=== PATIENT | female | born 1985 | race Caucasian/White ===

== ENCOUNTER 2017-12-13 22:21 | Emergency (ER) | payer OTHER, MEDICAID, SELFPAY ==
[2017-12-13 22:25] VITALS: BP 107/69; PULSE 64; RESP 18; TEMP 36.3; O2SAT 100; BMI 20.7
[2017-12-13 22:39] VITALS: BP 121/80; PULSE 98; RESP 18; TEMP 36.3; O2SAT 100; BMI 18.8
--- NOTE | 2017-12-13 23:11 | PC.NURSE ---
She stated in a clear voice that she drinks beer every day and today has been very thirsty and urinating frequently.Her gait is steady.her CBG was 86 in triage.
== END 2017-12-13 23:00 | disposition left against medical advice (07) ==
PROVIDERS: Family Provider Nurse Practitioner Family; PCP Nurse Practitioner Family
DX: F41.9 Anxiety disorder, unspecified (principal)
CPT/HCPCS: 99281; 99283

== ENCOUNTER 2018-03-20 10:55 | Emergency (ER) | payer OTHER, MEDICAID, SELFPAY ==
--- NOTE | 2018-03-20 10:57 | ED_ITS ---
HPI - General Adult General Chief complaint: Skin/Abscess/Foreign Body Stated complaint: CLICK IN THROAT,SWOLLEN,CANT SWALLOW Time Seen by Provider: 03/20/18 10:57 Source: patient Mode of arrival: ambulatory Limitations: no limitations History of Present Illness HPI narrative: 32-year-old female who was treated 3 weeks ago for a sinus infection for amoxicillin here for evaluation of swelling to the left side of her neck and also ?clicking ?when she swallows. No fevers. No problems breathing. No problems swallowing. Has not tried anything for prior to arrival. Related Data Home Medications Medication Instructions Recorded Confirmed albuterol sulfate [ProAir HFA] 1 - 2 puff INHALATION PRN PRN 03/20/18 03/20/18 fluticasone 1 spray INTRANASAL DIRECTED 03/20/18 03/20/18 loratadine 1 tab PO DAILY 03/20/18 03/20/18 nicotine (polacrilex) 1 ea PO DIRECTED 03/20/18 03/20/18 trazodone 25 - 50 mg PO BEDTIME PRN 03/20/18 03/20/18 Previous Rx's Medication Instructions Recorded cyclobenzaprine 10 mg PO TID PRN #10 tab 03/20/18 Allergies Allergy/AdvReac Type Severity Reaction Status Date / Time From IMITREX Allergy Mild Uncoded 10/04/17 12:18 Review of Systems Constitutional Denies fever(s) ENT Ears, Nose, Mouth, and Throat: Denies dental pain, Denies dysphagia, Denies vertigo, Denies mouth lesions, Denies mouth pain, Reports neck mass, Reports neck pain, Denies tinnitus, Denies sinus pain, Denies sinus pressure, Reports sore throat, Denies throat swelling and Denies tongue swelling Cardiovascular Denies dyspnea Respiratory Denies dyspnea Gastrointestinal Gastrointestinal: Denies dysphagia Genitourinary Denies dysuria Musculoskeletal Denies myalgias, Denies arthralgias and Reports neck pain Integumentary/Breasts Denies lesions and Denies rash Neurologic Denies vertigo Hematologic/Lymphatic Denies easy bleeding and Denies easy bruising Allergic/Immunologic Denies throat swelling and Denies tongue swelling [facility] Medical History Healthy adult (Acute) Surgical History No pertinent past surgical history (Acute) Social History Smoking Status: Current every day smoker Exam Initial Vital Signs Initial Vital Signs: Vital Signs Temperature 97.8 F 03/20/18 11:13 Pulse Rate 90 03/20/18 11:13 Respiratory Rate 13 03/20/18 11:13 Blood Pressure 107/80 03/20/18 11:13 Pulse Oximetry 100 03/20/18 11:13 Const General: cooperative, healthy appearing, comfortable, well developed, well groomed and No acute distress Orientation: alert, awake and oriented x3 HENMT Head: normal to inspection and normocephalic Ears: TM's normal bilaterally Face and sinus: normal facial exam Mouth: oral mucosae normal and tongue normal Teeth and gingiva: dentition normal Throat: uvula midline Neck Lymphatic: lymphadenopathy (Left anterior cervical) Resp Effort & Inspection: normal respiratory effort Cardio Rate: regular rate Rhythm: regular rhythm GI Inspection: non-distended Palpation: soft, No firm and No tender Skin Lesions: no lesions Rashes: no rashes Neuro General: alert, awake and oriented x3 Extrem General: normal to inspection and capillary refill normal Course Vital Signs - 8 hr 03/20/18 11:13 Temperature 97.8 F Pulse Rate 90 Respiratory Rate 13 Blood Pressure 107/80 Pulse Oximetry 100 Medical Decision Making MDM Narrative Medical decision making narrative: No respiratory distress. Does have 1 left- sided 1 cm freely movable tender lymph node. No overlying skin changes. No respiratory changes. Discussed all this with the patient. No indication for antibiotics. We did discuss the importance of her quitting smoking. She does have a follow-up with ENT in 3 weeks. She was given return precautions. She expressed understanding and agreement with plan. Discharge Plan Departure Patient Disposition: Home Clinical Impression: Lymphadenopathy Discharge Date/Time: 03/20/18 11:52 Interventions: ED Discharge Assessment Last Done: 03/20/18 11:52 Instructions: DI for Lymphadenopathy Activity Restrictions/Additional Instructions: Recommend that you keep your appointment with your ENT doctor that she has scheduled in 3 weeks. If her symptoms worsen, he start having fevers, problems breathing or any other concerning symptoms you can return to the emergency department for a re-evaluation. Prescriptions: New cyclobenzaprine 10 mg tablet 10 mg PO TID PRN (Reason: muscle spasm) Qty: 10 RF: 0 No Action trazodone 50 mg tablet 25 - 50 mg PO BEDTIME PRN (Reason: Insomnia) RF: 0 nicotine (polacrilex) 4 mg gum 1 ea PO DIRECTED RF: 0 albuterol sulfate [ProAir HFA] 90 mcg/actuation HFA aerosol inhaler 1 - 2 puff Inhalation PRN PRN (Reason: Shortness Of Breath) RF: 0 fluticasone 50 mcg/actuation spray,suspension 1 spray Intranasal DIRECTED RF: 0 loratadine 10 mg tablet 1 tab PO DAILY RF: 0
[2018-03-20 11:13] VITALS: BP 107/80; PULSE 90; RESP 13; TEMP 36.6; O2SAT 100
--- NOTE | 2018-03-20 11:32 | PC.NURSE ---
Patient c/o clicking noise with soreness in the throat with swallowing; It doesn't happen if patient turns her head towards the right;
== END 2018-03-20 11:52 | disposition home or self-care (01) ==
PROVIDERS: Emergency Provider Emergency Medicine; Family Provider Nurse Practitioner Family; PCP Nurse Practitioner Family
DX: R59.1 Generalized enlarged lymph nodes (principal)
CPT/HCPCS: 99282

== ENCOUNTER 2019-03-08 16:25 | Emergency (ER) | payer OTHER, MEDICAID, SELFPAY ==
[2019-03-08 17:15] VITALS: BP 136/84; PULSE 93; RESP 18; TEMP 36.7; O2SAT 100; BMI 20.5
--- NOTE | 2019-03-08 17:19 | DI.RAD.S_ITS ---
PROCEDURE: XR KNEE LT 3V INDICATIONS: left knee pain and bump TECHNIQUE: 3 views of the knee were acquired. COMPARISON: None. FINDINGS: Bones: No fractures or dislocations. No suspicious bony lesions. Soft tissues: No joint effusion. No suspicious soft tissue calcifications. IMPRESSION: No left knee fracture or dislocation. No gross soft tissue abnormality is seen. No suspicious bony lesion. Dictated by: Hussein Campuzano M.D. on 03/08/2019 at 17:43 Approved by: Hussein Camupzano M.D. on 03/08/2019 at 17:43
--- NOTE | 2019-03-08 18:41 | ED_ITS ---
HPI - Extremity Problem <KAREY Underwood - Last Filed: 03/08/19 21:56> General Chief complaint: Extremity Problem,Nontraumatic Stated complaint: lump left leg, with numbness above knee Time Seen by Provider: 03/08/19 18:09 Source: patient Mode of arrival: ambulatory Limitations: no limitations History of Present Illness HPI Narrative: 33-year-old female presents emergency department today complaining of left knee discomfort. She states she started having slight pain with ?weird sensations that she described as a slight tapping on her skin to her left knee. She also noted a small cyst-like nodule that developed on the tibial tuberosity of her left knee. Patient states she thinks this might be related. She denies any fevers, trauma to the area, shortness of breath, calf pain, hip pain, nausea, vomiting, diarrhea, or syncope. Related Data Home Medications Medication Instructions Recorded Confirmed albuterol sulfate [ProAir HFA] 1 - 2 puff INHALATION PRN PRN 03/20/18 03/20/18 fluticasone propionate 1 spray INTRANASAL DIRECTED 03/20/18 03/20/18 loratadine 1 tab PO DAILY 03/20/18 03/20/18 nicotine (polacrilex) 1 ea PO DIRECTED 03/20/18 03/20/18 trazodone 25 - 50 mg PO BEDTIME PRN 03/20/18 03/20/18 Previous Rx's Medication Instructions Recorded cyclobenzaprine 10 mg PO TID PRN #10 tab 03/20/18 Allergies Allergy/AdvReac Type Severity Reaction Status Date / Time naltrexone Allergy Verified 03/08/19 17:18 sumatriptan [From Imitrex] Allergy Verified 03/08/19 17:14 Review of Systems <KAREY Underwood - Last Filed: 03/08/19 21:56> Review of Systems Narrative: REVIEW OF SYSTEMS: GENERAL: Denies fever or chills. HENT: No head trauma. EYES: No double vision or vision loss. CARDIOVASCULAR: No chest pain or syncope. RESPIRATORY: No shortness of breath or cough. GASTROINTESTINAL: No nausea, vomiting, diarrhea, or constipation. GENITOURINARY: No flank pain or dysuria. MUSCULOSKELETAL: Complains of left knee sensations in pain, see HPI. INTEGUMENTARY: No rash, lesions, or pruritus. NEURO: No numbness, tingling. Patient denies saddle paresthesias or loss of bowel or bladder control. PSYCH: No behavior or mood changes. PFSH <KAREY Underwood - Last Filed: 03/08/19 21:56> Medical History Healthy adult (Acute) Surgical History No pertinent past surgical history (Acute) Social History Smoking Status: Current every day smoker Social History Smoking Status: Current every day smoker Exam <KAREY Underwood - Last Filed: 03/08/19 21:56> Initial Vital Signs Initial Vital Signs: Vital Signs Temperature 98.1 F 03/08/19 17:15 Pulse Rate 93 H 03/08/19 17:15 Respiratory Rate 18 03/08/19 17:15 Blood Pressure 136/84 03/08/19 17:15 Pulse Oximetry 100 03/08/19 17:15 PHYSICAL EXAMINATION: GENERAL: Well groomed, alert, and cooperative. Answers questions promptly and appropriately. Vital signs noted. HENT: Normocephalic, atraumatic. EYES: Symmetrical, sclera white, no periorbital swelling. RESPIRATORY: Normal respiratory rate, trachea midline, airway patent. No stridor, nasal flaring or accessory muscle use. MUSCULOSKELETAL: There is a slight 2cm cyst noted to tibia region to left knee, slight greenish bruise that appears to be old in nature to left side of kowalski. And tenderness to palpation of knee, thigh, or lower leg. No rashes or surrounding erythema. Normal gait and coordination. Equal tone and mass bilaterally. No spinal tenderness or deformities. EXTREMITIES: CMS intact. No pedal edema. SKIN: Warm, dry, soft, appropriate color for ethnicity. No lesions, rashes, or wounds. NEURO: Patient reports equal light touch sensation to lower extremities, 2+ pedal pulses that are equal bilaterally. Alert and Oriented X 3. No sensory deficits. PSYCH: Appropriate affect and mood. <Winston Gann DO - Last Filed: 03/08/19 23:21> Initial Vital Signs Initial Vital Signs: Vital Signs Temperature 98.1 F 03/08/19 17:15 Pulse Rate 93 H 03/08/19 17:15 Respiratory Rate 18 03/08/19 17:15 Blood Pressure 136/84 03/08/19 17:15 Pulse Oximetry 100 03/08/19 17:15 Course <KAREY Underwood - Last Filed: 03/08/19 21:56> Course Course Narrative: Patient was offered Toradol for her discomfort, she denied. We had a discussion about following up with her primary care provider for further evaluation of the cyst. I spent over 10 minutes educating patient about the reasons to return emergency department such as increased redness around the area, the development of rashes, further concerning symptoms. Orders Ordered: ED Orders 03/08/19 17:19 XR knee LT 3V Stat Discontinued Medications Ketorolac Tromethamine (Toradol) 30 mg IM NOW ONE Stop: 03/08/19 18:34 Last Admin: 03/08/19 18:53 Dose: Not Given Documented by: IVONNE Vital Signs Vital signs: Vital Signs - 8 hr 03/08/19 17:15 03/08/19 18:49 Temperature 98.1 F 98.2 F Pulse Rate 93 H 90 Respiratory Rate 18 18 Blood Pressure 136/84 125/80 Pulse Oximetry 100 100 <Winston Gann DO - Last Filed: 03/08/19 23:21> Orders Ordered: ED Orders 03/08/19 17:19 XR knee LT 3V Stat Discontinued Medications Ketorolac Tromethamine (Toradol) 30 mg IM NOW ONE Stop: 03/08/19 18:34 Last Admin: 03/08/19 18:53 Dose: Not Given Documented by: IVONNE Vital Signs Vital signs: Vital Signs - 8 hr 03/08/19 17:15 03/08/19 18:49 Temperature 98.1 F 98.2 F Pulse Rate 93 H 90 Respiratory Rate 18 18 Blood Pressure 136/84 125/80 Pulse Oximetry 100 100 MDM - Extremity (Nontraumatic) <KAREY Underwood - Last Filed: 03/08/19 21:56> Medical Records Attestation: I reviewed the patient's medical records. Lab Data Attestation: I reviewed the patient's lab results. Imaging Data L Knee XR: Radiologist's impression: [address] [address] XRay Report Signed Patient: Leti Aguirre NMR#: [id number] : 1985Acct:[id number] Age/Sex: 33 / FDate of Service: 03/08/19 Loc: ED Accession Number: [id number] Procedure: XR knee LT 3V Ordering Provider: Laurita Forbes D.O. PROCEDURE: XR KNEE LT 3V INDICATIONS: left knee pain and bump TECHNIQUE: 3 views of the knee were acquired. COMPARISON: None. FINDINGS: Bones: No fractures or dislocations. No suspicious bony lesions. Soft tissues: No joint effusion. No suspicious soft tissue calcifications. IMPRESSION: No left knee fracture or dislocation. No gross soft tissue abnormality is seen. No suspicious bony lesion. Dictated by: Hussein Campuzano M.D. on 03/08/2019 at 17:43 Approved by: Hussein Campuzano M.D. on 03/08/2019 at 17:43 [facility] Narrative Medical decision making narrative: Differential includes sebaceous cyst (this may be causing the sensations that she has been feeling), fracture (less likely due to negative x-ray), pinched nerve (less likely due to lack of shooting pain or burning pain). Less concern for infection or cauda equina due to lack of systemic symptoms such as fever, lack of saddle paresthesias. Patient was encouraged to follow up with her primary care provider for further evaluation. Her condition was noted to be not emergent at this time. Discharge Plan Departure Patient Disposition: Home Clinical Impression: Acute knee pain Qualifiers: Laterality: left Qualified Code(s): M25.562 - Pain in left knee Discharge Date/Time: 03/08/19 18:49 Instructions: DI for Knee Pain Activity Restrictions/Additional Instructions: Thank you for entrusting me with your care today. As discussed, it is possible that the small cyst under knee may be causing her symptoms. Your x-rays were negative for any fractures. Please follow up with your primary care provider in the next week or so for re-evaluation. Return to the emergency department if he develops chest pain, shortness of breath, syncope, seizures, or other concerning symptoms. Prescriptions: No Action trazodone 50 mg tablet 25 - 50 mg PO BEDTIME PRN (Reason: Insomnia) RF: 0 nicotine (polacrilex) 4 mg gum 1 ea PO DIRECTED RF: 0 albuterol sulfate [ProAir HFA] 90 mcg/actuation HFA aerosol inhaler 1 - 2 puff Inhalation PRN PRN (Reason: Shortness Of Breath) RF: 0 fluticasone propionate 50 mcg/actuation spray,suspension 1 spray Intranasal DIRECTED RF: 0 loratadine 10 mg tablet 1 tab PO DAILY RF: 0 cyclobenzaprine 10 mg tablet 10 mg PO TID PRN (Reason: muscle spasm) Qty: 10 RF: 0 Referrals: Yesica Galicia ARNP [Primary Care Provider] - <Winston Gann DO - Last Filed: 03/08/19 23:21> Sign Out Provider Sign Out Attestation: I was available for consultation during this odell ent's emergency department encounter
[2019-03-08 18:49] VITALS: BP 125/80; PULSE 90; RESP 18; TEMP 36.8; O2SAT 100
== END 2019-03-08 18:49 | disposition home or self-care (01) ==
PROVIDERS: Emergency Provider Nurse Practitioner; Family Provider Nurse Practitioner Family; PCP Nurse Practitioner Family
DX: M25.562 Pain in left knee (principal)
CPT/HCPCS: 73562; 99282; 99283

== ENCOUNTER 2019-04-18 19:32 | Emergency (ER) | payer OTHER, MEDICAID, SELFPAY ==
[2019-04-18 19:36] VITALS: BP 135/83; PULSE 99; RESP 14; TEMP 36.8; O2SAT 97; BMI 20.5
--- NOTE | 2019-04-18 20:52 | ED_ITS ---
HPI - Headache <Lorena Oleary PA-C - Last Filed: 04/18/19 21:46> General Chief Complaint: Headache Stated Complaint: states swollen lymph,headache Time Seen by Provider: 04/18/19 19:43 Source: patient Mode of arrival: Ambulatory Limitations: no limitations History of Present Illness HPI Narrative: This 34-year-old female comes to ED with complaints of recurrent headache, ear pain and hearing changes with intermittent hyper acuity and blunted hearing, also intermittent sore throat and lymphadenopathy, which she has had intermittently for 2 years. She states she was seen in the other local ED a couple of weeks ago with even worse headache, and butalbital helped markedly, at least temporarily. She states she has seen ENT in the past and had some type of MRI of her neck or throat area. She has not been able to be referred locally secondary to her primary care clinic closing suddenly and has not been able to get any referrals. She did have a neurology referral set up in a couple of months in [place] as along with the symptoms she has noted intermittent twitching in her eyes. She states a couple of years ago ENT did do a trigeminal nerve block which helped significantly, but then pain seemed to come back again. She did see a dentist at their recommendation and did not find any related problem. She states she also had some bleeding from her left ear about 10 days ago which has resolved. She has a history of migraines and states headache has some features of that, but also more of a squeezing pain. She does not have vomiting or vision change. She denies any fever. She denies any acute changes this evening, but has persistent symptoms and needs help getting care locally. She notes that she was also given dexamethasone she believes at her other ED visit thinks that did help her swollen gland. She denies any travel or known exposures. She denies any possibility of Related Data Home Medications Medication Instructions Recorded Confirmed albuterol sulfate [ProAir HFA] 1 - 2 puff INHALATION PRN PRN 03/20/18 03/20/18 fluticasone propionate 1 spray INTRANASAL DIRECTED 03/20/18 03/20/18 loratadine 1 tab PO DAILY 03/20/18 03/20/18 nicotine (polacrilex) 1 ea PO DIRECTED 03/20/18 03/20/18 trazodone 25 - 50 mg PO BEDTIME PRN 03/20/18 03/20/18 Previous Rx's Medication Instructions Recorded cyclobenzaprine 10 mg PO TID PRN #10 tab 03/20/18 hoipaxkbpq-[id number] 1 tab PO Q6-8H PRN #10 tab 04/18/19 Allergies Allergy/AdvReac Type Severity Reaction Status Date / Time naltrexone Allergy Verified 04/18/19 19:36 sumatriptan [From Imitrex] Allergy Verified 04/18/19 19:36 Review of Systems <Lorena Oleary PA-C - Last Filed: 04/18/19 21:46> Review of Systems ROS Unobtainable: All systems reviewed & are unremarkable except as noted in HPI and below Patient History <Lorena Oleary PA-C - Last Filed: 04/18/19 21:46> Medical History (Updated 04/18/19 @ 21:08 by Lorena Oleary PA-C) Healthy adult (Acute) Lymphadenopathy (Chronic) Migraine (Chronic) Neuralgia (Chronic) Surgical History (Updated 04/18/19 @ 20:57 by Lorena Oleary PA-C) No history of previous surgery (Chronic) No pertinent past surgical history (Acute) Social History Smoking Status: Former smoker alcohol intake frequency: 3 or more drinks per day Alcohol type: beer Substance Use Type: does not use Exam <Lorena Oleary PA-C - Last Filed: 04/18/19 21:46> Narrative Exam Narrative: GENERAL APPEARANCE: Patient sitting comfortably, in no distress. HEAD: No sinus TTP. EYES: PERRL, EOMI. EARS: Normal auditory canals, aside from a small scabbed a bleb on the left with normal tissue surrounding. TMS intact with normal light reflexes. ORAL CAVITY: Normal oropharynx. THROAT: Clear. NECK/THYROID: Neck supple, full range of motion, small symmetric tender anterior cervical nodes, no posterior or supraclavicular nodes LUNGS: Clear to auscultation bilaterally, clear to percussion HEART: RRR without murmur, nl S1, S2, no S3 or S4. DERMATOLOGIC: No exanthem Initial Vital Signs Initial Vital Signs: Vital Signs Temperature 98.3 F 04/18/19 19:36 Pulse Rate 99 H 04/18/19 19:36 Respiratory Rate 14 04/18/19 19:36 Blood Pressure 135/83 04/18/19 19:36 Pulse Oximetry 97 04/18/19 19:36 <Vita Juarez DO - Last Filed: 04/19/19 01:04> Initial Vital Signs Initial Vital Signs: Vital Signs Temperature 98.3 F 04/18/19 19:36 Pulse Rate 99 H 04/18/19 19:36 Respiratory Rate 14 04/18/19 19:36 Blood Pressure 135/83 04/18/19 19:36 Pulse Oximetry 97 04/18/19 19:36 Course <Lorena Oleary PA-C - Last Filed: 04/18/19 21:46> Course Additional Information: Patient has had recurrent headache, facial neuralgia, lymphadenopathy but no acutely worsening symptoms this evening. Agree with her that imaging here such as CT and further lab work unlikely to impact care this evening, likely needs further specialist evaluation and MRI, i.e. of IACs. She did have relief previously with Fioricet and was given 1 this evening and a small prescription. She will get her records from previous workup at [facility] and given number for [facility] so she can call to get set up with a local primary care provider to help with referrals. Advised return to ED in the interim if any acutely worsening symptoms Orders Ordered: Discontinued Medications Acetaminophen/Butalbital/Caffeine (Fioricet) 1 each PO NOW ONE Stop: 04/18/19 20:51 Last Admin: 04/18/19 21:17 Dose: 1 each Documented by: BTONER Vital Signs Vital signs: Vital Signs - 8 hr 04/18/19 19:36 04/18/19 21:57 Temperature 98.3 F Pulse Rate 99 H 80 Respiratory Rate 14 16 Blood Pressure 135/83 115/70 Pulse Oximetry 97 100 <Vita Juarez DO - Last Filed: 04/19/19 01:04> Orders Ordered: Discontinued Medications Acetaminophen/Butalbital/Caffeine (Fioricet) 1 each PO NOW ONE Stop: 04/18/19 20:51 Last Admin: 04/18/19 21:17 Dose: 1 each Documented by: BTONER Vital Signs Vital signs: Vital Signs - 8 hr 04/18/19 19:36 04/18/19 21:57 Temperature 98.3 F Pulse Rate 99 H 80 Respiratory Rate 14 16 Blood Pressure 135/83 115/70 Pulse Oximetry 97 100 Discharge Plan Departure Patient Disposition: Home Clinical Impression: Lymphadenopathy, Neuralgic facial pain Headache Qualifiers: Headache type: unspecified Headache chronicity pattern: chronic headache Intractability: not intractable Qualified Code(s): R51 - Headache Discharge Date/Time: 04/18/19 21:25 Instructions: DI for Headache, DI for Neuralgia Activity Restrictions/Additional Instructions: I think that the facial pain that you described is nerve pain. I agree with you that this needs further testing given the way it improved when you had the nerve block done, and also since you have had hearing changes along with this. Your headache may be a combination of tension and migraine type headache, and this could also be related or exacerbated by your facial or ear pain. Your lymph node seems better tonight which may be related to the steroid you had. I do not think you need any emergency testing or hospitalization tonight, but you do need further workup and referrals. We have given you a dose of Fioricet tonight since that was so helpful for the headache previously, and I have given you a prescription for a few to fill if needed while you are waiting to see a new primary care provider. It would also be helpful if you can get copies of your records from [facility]. Please call [facility] ([place], [place]) tomorrow and request copies of all of your medical records, actual discs with your scanned on them, and any lab work that you have had so that your new primary care provider and anyone that they refer you to will have that information. Please call the hospital affiliate marketing coordinator here tomorrow at [phone] and let them know you were seen in the emergency room tonight and we would like you to have follow-up with a new primary care provider, preferably in the next week, for these problems. The closest local neurologist is in [place] as you already know. There is also an excellent ENT group that sees patients in [place] and [place]. Prescriptions: New wwuliqtiim-oascfvb-ksjjqiqq 50-325-40 mg tablet 1 tab PO Q6-8H PRN (Reason: headache/facial pain) Qty: 10 RF: 0 No Action trazodone 50 mg tablet 25 - 50 mg PO BEDTIME PRN (Reason: Insomnia) RF: 0 nicotine (polacrilex) 4 mg gum 1 ea PO DIRECTED RF: 0 albuterol sulfate [ProAir HFA] 90 mcg/actuation HFA aerosol inhaler 1 - 2 puff Inhalation PRN PRN (Reason: Shortness Of Breath) RF: 0 fluticasone propionate 50 mcg/actuation spray,suspension 1 spray Intranasal DIRECTED RF: 0 loratadine 10 mg tablet 1 tab PO DAILY RF: 0 cyclobenzaprine 10 mg tablet 10 mg PO TID PRN (Reason: muscle spasm) Qty: 10 RF: 0
[2019-04-18] MEDS: BUTALB/APAP/CAFFEINE 50/325/40 TABLET 1 EACH PO (21:17)
--- NOTE | 2019-04-18 21:18 | PC.NURSE ---
pt has left side ear pain, jaw pain. pt has known issues with lymph node, and is attempting to follow up with EENT. pt appt at [facility] was cancelled, with offer local pcps to pt.
[2019-04-18 21:57] VITALS: BP 115/70; PULSE 80; RESP 16; O2SAT 100
== END 2019-04-18 21:25 | disposition home or self-care (01) ==
PROVIDERS: Emergency Provider Internal Medicine; Family Provider Nurse Practitioner Family; PCP Nurse Practitioner Family
DX: R59.1 Generalized enlarged lymph nodes (principal); R51 Headache
CPT/HCPCS: 99282; 99283

== ENCOUNTER 2019-12-21 12:47 | Emergency (ER) | payer OTHER, MEDICAID, SELFPAY ==
[2019-12-21 12:56] VITALS: BP 138/92; PULSE 116; RESP 14; TEMP 36.7; O2SAT 99; BMI 19.7
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
[2019-12-21 13:35] VITALS: PULSE 102
[2019-12-21] MEDS: OXYCODONE/ACETAMINOPHEN 5/325 TABLET 1 TAB PO (13:54)
[2019-12-21 14:10] LABS: Add Manual Diff / Slide Review NO; Basophils Absolute Auto 100 /uL (0-100); Basophils Percent Auto 2.3 % (0-2); Eosinophils Absolute Auto 0 /uL (0-450); Eosinophils Percent Auto 0.6 % (2-4); Hematocrit 31.7 % (36-46); Hemoglobin 11.3 g/dL (12.0-16.0); Lymphocytes Absolute Auto 900 /uL (1100-4500); Lymphocytes Percent Auto 22.2 % (25-40); Mean Corpuscular HGB Conc 35.5 % (30-36); Mean Corpuscular Hemoglobin 37.8 PG (26-34); Mean Corpuscular Volume 106.7 fL (80-100); Monocytes Absolute Auto 400 /uL (0-900); Monocytes Percent Auto 11.2 % (3-14); Neutrophils Absolute Auto 2600 /uL (1500-7000); Neutrophils Percent Auto 63.7 % (50-75); Platelet Count 373 X10^3/uL (150-400); Red Blood Cell Count 2.98 X10^6/uL (4.0-5.2)
[2019-12-21 14:21] LABS: Alanine Aminotransferase 53 IU/L (<35); Albumin 4.9 g/dL (3.5-5.0); Albumin Globulin Ratio 1.8 (1.0-2.8); Alkaline Phosphatase 78 U/L (38-126); Aspartate Aminotransferase 147 IU/L (14-36); Bilirubin Total 0.4 mg/dL (0.2-1.3); Calcium 9.1 mg/dL (8.4-10.2); Carbon Dioxide 29 mmol/L (22-32); Chloride 96 mmol/L (98-107); Estimated Glomerular Filt Rate > 60.0 mL/min (>60); Globulin 2.8 g/dL (1.7-4.1); Glucose 101 mg/dL (70-100); HEMOLYSIS < 15 (0-50); Lipase 232 U/L (23-300); Potassium 4.1 mmol/L (3.4-5.1); Sodium 135 mmol/L (137-145); Total Protein 7.7 g/dL (6.3-8.2)
[2019-12-21 14:22] LABS: Creatine Kinase 103 U/L (30-135)
[2019-12-21 14:34] LABS: BUN Creatinine Ratio 5.6 (6-22); Blood Urea Nitrogen < 2 mg/dL (7-17); Troponin I < 0.012 ng/mL (0.01-0.034)
[2019-12-21 14:37] LABS: CKMB % Relative Index 0.5 % (1.5-5.0); Creatine Kinase MB 0.51 ng/mL (<2.37)
[2019-12-21 15:21] LABS: RBC Urine 0-1/HPF (0-5/HPF)
[2019-12-21 15:22] LABS: Bacteria Urine Many (>30); Culture Indicated Urine Specimen Cultured; Squamous Epithelial Cell Urine 0-1 /HPF (0-5/HPF); WBC Urine 1-5/HPF (0-5/HPF)
== END 2019-12-21 15:43 | disposition home or self-care (01) ==
PROVIDERS: Emergency Provider Student in an Organized Health Care Education/Training Program; Family Provider Nurse Practitioner Family; PCP Nurse Practitioner Family
DX: R07.89 Other chest pain (principal); S52.571A Other intraarticular fracture of lower end of right radius, initial encounter for closed fracture; V87.7XXA Person injured in collision between other specified motor vehicles (traffic), initial encounter; N39.0 Urinary tract infection, site not specified
CPT/HCPCS: 36415; 71046; 73130; 80053; 81003; 81015; 81025; 82550; 82553; 83690; 84484; 85025; 86850; 86900; 86901; 87077; 87086; 87186; 93005; 99284

== ENCOUNTER 2020-01-09 17:21 | Observation (INO) | payer OTHER, MEDICAID, SELFPAY ==
[2020-01-09] VITALS (8 sets, daily range): BP systolic 116–139; BP diastolic 69–84; PULSE 111–122; RESP 16–20; TEMP 36.1–36.8; O2SAT 97–100; BMI 19.9
--- NOTE | 2020-01-09 18:27 | ED.NAVMDI ---
HPI - Nausea/Vomiting/Diarrhea General Chief complaint: Nausea/Vomiting/Diarrhea Stated complaint: medication issues Time Seen by Provider: 01/09/20 18:10 Source: patient Mode of arrival: Ambulatory Limitations: no limitations History of Present Illness HPI Narrative: 34F smoker with history of mental health issues and substance abuse presents with epigastric pain and persistent N/V. She has had N/V off and on for some time, but it is notably worse today. She has become tremulous, dizzy, and lightheaded. She drinks regularly and questions whether or not she may be withdrawing a bit from this or possibly medications as she cannot tell if she has been keeping her medications down. She has no fever or chills. She denies diarrhea, abdominal pain, nor urinary complaints such as dysuria, frequency, or urgency. Related Data Home Medications Medication Instructions Recorded Confirmed albuterol sulfate [ProAir HFA] 1 - 2 puff INHALATION PRN PRN 03/20/18 01/09/20 fluticasone propionate 1 spray INTRANASAL DIRECTED 03/20/18 01/09/20 loratadine 1 tab PO DAILY 03/20/18 01/09/20 nicotine (polacrilex) 1 ea PO DIRECTED 03/20/18 01/09/20 trazodone 25 - 50 mg PO BEDTIME PRN 03/20/18 01/09/20 bupropion HCl 150 mg PO BID 01/09/20 01/09/20 calcium carb-mag hydrox-simeth 10 ml PO PRN PRN 01/09/20 01/09/20 [Mylanta Tonight] vzuizhxxi-WBY-QB-acetaminophen 30 ml PO BEDTIME 01/09/20 01/09/20 [Nite Time] duloxetine 20 mg PO DAILY 01/09/20 01/09/20 ferrous sulfate 325 mg PO DAILY 01/09/20 01/09/20 folic acid 0.8 mg PO DAILY 01/09/20 01/09/20 magnesium 250 mg PO DAILY 01/09/20 01/09/20 nortriptyline 50 mg PO BEDTIME 01/09/20 01/09/20 tramadol 50 mg PO DAILY 01/09/20 01/09/20 vit B complex 100 combo no.2 1 tab PO DAILY 01/09/20 01/09/20 [B-100 Complex] Previous Rx's Medication Instructions Recorded cyclobenzaprine 10 mg PO TID PRN #10 tab 03/20/18 ioelifzrnw-rktojoi-xmkzikhu 1 tab PO Q6-8H PRN #10 tab 04/18/19 nitrofurantoin macrocrystal 100 mg PO BID #10 cap 12/21/19 oxycodone-acetaminophen 1 tab PO Q4-6H PRN #18 tab 12/21/19 Allergies Allergy/AdvReac Type Severity Reaction Status Date / Time naltrexone Allergy Verified 01/09/20 18:13 sumatriptan [From Imitrex] Allergy Verified 01/09/20 18:13 Review of Systems Constitutional Constitutional: Denies chills, Denies fatigue, Denies fever(s), Denies frequent falls, Denies lethargy and Denies weakness Eyes Eyes: Denies change in vision, Denies eye discharge, Denies irritation and Denies loss of vision ENT Ears, Nose, Mouth, and Throat: Denies change in voice, Denies dizziness, Denies neck pain, Denies sore throat and Denies throat swelling Cardiovascular Cardiovascular: Denies chest pain, Denies irregular heart rhythm, Denies lightheadedness, Denies palpitations, Denies dyspnea, Denies dyspnea on exertion and Denies orthopnea Respiratory Respiratory: Denies cough, Denies dyspnea, Denies dyspnea on exertion and Denies wheezing Gastrointestinal Gastrointestinal: Reports abdominal pain, Denies change in bowel habits, Denies diarrhea, Reports nausea and Reports vomiting Musculoskeletal Musculoskeletal: Denies neck pain and Denies numbness Integumentary/Breasts Skin/Breast: Denies pruritus, Denies erythema, Denies rash and Denies wounds Neurologic Neurologic: Denies behavioral changes, Denies confusion, Denies dizziness, Denies frequent falls, Denies loss of vision, Denies numbness and Denies weakness Psychiatric Psychiatric: Denies anxiety, Denies behavioral changes, Denies confusion, Denies depression, Denies homicidal ideation and Denies suicidal ideation Endocrine Endocrine: Denies fatigue, Denies flushing and Denies palpitations Hematologic/Lymphatic Hematologic/Lymphatic: Denies easy bruising Allergic/Immunologic Allergic/Immunologic: Denies urticaria, Denies throat swelling and Denies wheezing Patient History Medical History (Updated 01/09/20 @ 21:54 by Alexander Ochoa DO) Healthy adult (Acute) Lymphadenopathy (Chronic) Migraine (Chronic) Neuralgia (Chronic) Surgical History No history of previous surgery (Chronic) No pertinent past surgical history (Acute) Family History (Updated 01/10/20 @ 00:57 by KAREY Reece) Father Alcoholism in family member Social History household members: family Smoking Status: Former smoker alcohol intake: current Smoking Status: Former smoker alcohol intake frequency: 3 or more drinks per day Alcohol type: beer Substance Use Type: marijuana Exam Narrative Exam Narrative: GENERAL: [34] year old patient appears stated age. Thin, anxious, tremulous HEAD: Atraumatic. Normocephalic. EYES: Pupils equal round and reactive. Extraocular motions intact. No scleral icterus. No injection or drainage. ENT: Dry mucous membranes Nose without bleeding, purulent drainage. Throat without erythema, tonsillar hypertrophy or exudate. Airway patent. NECK: Trachea midline. Non tender CARDIOVASCULAR: Tachycardic but regular rhythm without murmurs, gallops, or rubs. RESPIRATORY: Clear to auscultation. Breath sounds equal bilaterally. No wheezes, rales, or rhonchi. GASTROINTESTINAL: Abdomen soft, non-tender, nondistended. EXTREMITIES: No edema or joint tenderness. BACK: Nontender without deformity or crepitance. No flank tenderness. NEURO: AOx3. SKIN: Poor skin turgor No rash or erythema of visible areas Initial Vital Signs Initial Vital Signs: Vital Signs Temperature 97.0 F L 01/09/20 18:10 Pulse Rate 117 H 01/09/20 18:10 Respiratory Rate 20 01/09/20 18:10 Blood Pressure 132/69 01/09/20 18:10 Pulse Oximetry 100 01/09/20 18:10 Course Orders Ordered: Acetaminophen (Tylenol) 650 mg PO Q6HR PRN PRN Reason: Fever/Mild Pain (1-3) Albuterol (Ventolin Hfa (Vent/Covid R/O)) 2 puff INH RTQ4HR [facility] Last Admin: 01/10/20 04:28 Dose: Not Given Documented by: RAMSEY Docusate Sodium (Colace) 100 mg PO BID [facility] Last Admin: 01/10/20 00:57 Dose: Not Given Documented by: RAMSEY Enoxaparin Sodium (Lovenox) 40 mg SUBCUT DAILY [facility] Folic Acid (Folic Acid) 1 mg PO DAILY [facility] Sodium Chloride (Normal Saline 0.9%) 1,000 mls @ 150 mls/hr IV CONT [facility] Last Admin: 01/09/20 22:06 Dose: Not Given Documented by: LUIS ALBERTO Sodium Chloride (Normal Saline 0.9%) 1,000 mls @ 100 mls/hr IV CONT [facility] Magnesium Sulfate 2 gm/ Folic Acid 1 mg/ Thiamine HCl 100 mg / Multivitamins 10 ml/ Sodium Chloride 1,015.2 mls @ 125 mls/hr IV NOW ONE Stop: 01/10/20 07:29 Last Admin: 01/10/20 00:38 Dose: 125 mls/hr Documented by: RAMSEY Ketorolac Tromethamine (Toradol) 15 mg IV Q8H PRN PRN Reason: Pain, Moderate (4-6) Stop: 01/15/20 00:14 Last Admin: 01/10/20 00:38 Dose: 15 mg Documented by: RAMSEY Lorazepam (Ativan) 2 mg PO Q4HR PRN; Protocol PRN Reason: Alcohol Withdrawal Last Admin: 01/10/20 00:59 Dose: 2 mg Documented by: RAMSEY Metoclopramide HCl (Reglan) 5 mg IV Q6HR PRN PRN Reason: Nausea And Vomiting Multivitamins (Tab-A-Joleen) 1 tab PO DAILY [facility] Naloxone HCl (Narcan) 0.2 mg IV Q2MIN PRN PRN Reason: Opiate Reversal Nicotine (Nicoderm) 14 mg TOP DAILY [facility] Ondansetron HCl (Zofran) 4 mg IV Q4HR PRN PRN Reason: Nausea And Vomiting Last Admin: 01/10/20 00:39 Dose: 4 mg Documented by: Admin: 01/09/20 19:49 Dose: 4 mg Documented by: LUIS ALBERTO Ondansetron HCl (Zofran) 4 mg IV Q6HR [facility] Last Admin: 01/10/20 00:40 Dose: 4 mg Documented by: RAMSEY Oxycodone/Acetaminophen (Percocet 5/325) 1 tab PO Q6HR PRN PRN Reason: Pain, Severe (7-10) Thiamine HCl (Vitamin B-1) 100 mg PO DAILY [facility] Stop: 01/13/20 09:01 Discontinued Medications Sodium Chloride (Normal Saline 0.9%) 1,000 mls @ 1,000 mls/hr IV [facility]OLUS ONE Stop: 01/09/20 19:27 Last Infusion: 01/09/20 22:54 Dose: 0 mls/hr Documented by: LUIS ALBERTO Admin: 01/09/20 19:48 Dose: 1,000 mls/hr Documented by: LUIS ALBERTO Lorazepam (Ativan) 2 mg PO Q4HR [facility]; Protocol Ondansetron HCl (Zofran) 4 mg IV Q8HR PRN PRN Reason: Nausea And Vomiting Oxycodone/Acetaminophen (Percocet 5/325) 1 tab PO Q6HR [facility] Last Admin: 01/10/20 04:30 Dose: Not Given Documented by: RAMSEY Pantoprazole Sodium (Protonix) 40 mg IV NOW ONE Stop: 01/09/20 18:29 Last Admin: 01/09/20 19:48 Dose: 40 mg Documented by: LUIS ALBERTO Phenobarbital (Phenobarbital) 130 mg IV NOW ONE Stop: 01/09/20 19:39 Last Admin: 01/09/20 19:49 Dose: 130 mg Documented by: LUIS ALBERTO Vital Signs Vital signs: Vital Signs - 8 hr 01/09/20 18:10 01/09/20 19:59 01/09/20 20:00 Temperature 97.0 F L Pulse Rate 117 H 114 H 114 H Respiratory Rate 20 Blood Pressure 132/69 130/82 124/82 Pulse Oximetry 100 100 100 01/09/20 20:15 01/09/20 20:30 01/09/20 21:00 Temperature Pulse Rate 111 H 119 H 119 H Respiratory Rate Blood Pressure 122/80 118/75 Pulse Oximetry 100 100 100 01/09/20 21:13 Temperature Pulse Rate 117 H Respiratory Rate Blood Pressure 116/84 Pulse Oximetry 100 MDM - Nausea/Vomiting/Diarrhea Lab Data Result diagrams: 01/09/20 19:21 01/09/20 19:21 Labs: Lab Results 01/09/20 01/09/20 01/09/20 Range/Units 19:21 19:21 19:21 WBC 8.4 (4.5-11.0) X10^3/uL RBC 2.86 L (4.0-5.2) X10^6/uL Hgb 10.8 L (12.0-16.0) g/dL Hct 29.9 L (36-46) % MCV 104.8 H (80-100) fL MCH 37.9 H (26-34) PG MCHC 36.1 H (30-36) % RDW 11.7 (11.6-14.8) % Plt Count 311 (150-400) X10^3/uL Neut % (Auto) 82.7 H (50-75) % Lymph % (Auto) 9.0 L (25-40) % [place] % (Auto) 7.1 (3-14) % Eos % (Auto) 0.1 L (2-4) % Baso % (Auto) 1.1 (0-2) % Neut # (Auto) 7000 (7217-3907) /uL Lymph # (Auto) 800 L (4759-0082) /uL [place] # (Auto) 600 (0-900) /uL Eos # (Auto) 0 (0-450) /uL Baso # (Auto) 100 (0-100) /uL Sodium 125 L (137-145) mmol/L Potassium 3.4 (3.4-5.1) mmol/L Chloride 85 L (98-107) mmol/L Carbon Dioxide 25 (22-32) mmol/L BUN 8 (7-17) mg/dL Creatinine 0.29 L (0.52-1.04) mg/dL Estimated GFR > 60.0 (>60) mL/min BUN/Creatinine Ratio 27.6 H (6-22) Glucose 106 H (70-100) mg/dL Calcium 9.4 (8.4-10.2) mg/dL Total Bilirubin 1.0 (0.2-1.3) mg/dL AST 111 H (14-36) IU/L ALT 53 H (<35) IU/L Alkaline Phosphatase 105 (38-126) U/L Total Protein 7.6 (6.3-8.2) g/dL Albumin 4.8 (3.5-5.0) g/dL Globulin 2.8 (1.7-4.1) g/dL Albumin/Globulin Ratio 1.7 (1.0-2.8) Lipase 130 (23-300) U/L Urine RBC (0-5/HPF) Urine WBC (0-5/HPF) Ur Squamous Epith Cells (0-5/HPF) Urine Bacteria (None) Ur Culture Indicated? Salicylates < 1.0 (<20) mg/dL U Opiates 300ng/mL cut (Negative) Ur Oxycodone Screen (Negative) Urine Methadone Screen (Negative) Acetaminophen < 10 L (10-30) ug/mL Ur Barbiturates Screen (Negative) U Tricyclic Antidepress (Negative) Ur Phencyclidine Scrn (Negative) Ur Amphetamines Screen (Negative) U Methamphetamines Scrn (Negative) Ur MDMA Scrn (Ecstasy) (Negative) U Benzodiazepines Scrn (Negative) Urine Cocaine Screen (Negative) U Marijuana (THC) Screen (Negative) Ethyl Alcohol < 10 ( - 10) mg/dL COVID-19 PCR (Negative) 01/09/20 01/09/20 01/09/20 Range/Units 19:28 19:28 21:20 WBC (4.5-11.0) X10^3/uL RBC (4.0-5.2) X10^6/uL Hgb (12.0-16.0) g/dL Hct (36-46) % MCV (80-100) fL MCH (26-34) PG MCHC (30-36) % RDW (11.6-14.8) % Plt Count (150-400) X10^3/uL Neut % (Auto) (50-75) % Lymph % (Auto) (25-40) % [place] % (Auto) (3-14) % Eos % (Auto) (2-4) % Baso % (Auto) (0-2) % Neut # (Auto) (6913-3828) /uL Lymph # (Auto) (1681-7454) /uL [place] # (Auto) (0-900) /uL Eos # (Auto) (0-450) /uL Baso # (Auto) (0-100) /uL Sodium (137-145) mmol/L Potassium (3.4-5.1) mmol/L Chloride (98-107) mmol/L Carbon Dioxide (22-32) mmol/L BUN (7-17) mg/dL Creatinine (0.52-1.04) mg/dL Estimated GFR (>60) mL/min BUN/Creatinine Ratio (6-22) Glucose (70-100) mg/dL Calcium (8.4-10.2) mg/dL Total Bilirubin (0.2-1.3) mg/dL AST (14-36) IU/L ALT (<35) IU/L Alkaline Phosphatase (38-126) U/L Total Protein (6.3-8.2) g/dL Albumin (3.5-5.0) g/dL Globulin (1.7-4.1) g/dL Albumin/Globulin Ratio (1.0-2.8) Lipase (23-300) U/L Urine RBC None seen (0-5/HPF) Urine WBC 1-5/hpf (0-5/HPF) Ur Squamous Epith Cells 0-1 /hpf (0-5/HPF) Urine Bacteria Many (>30) H (None) Ur Culture Indicated? Specimen cultured Salicylates (<20) mg/dL U Opiates 300ng/mL cut Negative (Negative) Ur Oxycodone Screen Negative (Negative) Urine Methadone Screen Negative (Negative) Acetaminophen (10-30) ug/mL Ur Barbiturates Screen Positive H (Negative) U Tricyclic Antidepress Negative (Negative) Ur Phencyclidine Scrn Negative (Negative) Ur Amphetamines Screen Negative (Negative) U Methamphetamines Scrn Negative (Negative) Ur MDMA Scrn (Ecstasy) Negative (Negative) U Benzodiazepines Scrn Negative (Negative) Urine Cocaine Screen Negative (Negative) U Marijuana (THC) Screen Negative (Negative) Ethyl Alcohol ( - 10) mg/dL COVID-19 PCR Negative (Negative) Point of Care Testing Test Results Negative Urine Dip Bedside Urine Glucose Negative Bedside Urine Bilirubin - Negative Bedside Urine Ketone ++ 40 Urine Specific [place] 1.015 Bedside Urine Occult Blood - Negative Bedside Urine pH 7.0 Bedside Urine Protein +/- 15 Bedside Urine Urobilinogen - Negative Bedside Urine Nitrite - Negative Bedside Urine Leukocytes +/- 15 Esterase Discharge Plan Departure Patient Disposition: Admitted as Observation Clinical Impression: Acute hyponatremia Discharge Date/Time: 01/09/20 22:53 Referrals: Yesica Galicia ARNP [Primary Care Provider] - Admit Date/Time: 01/09/20 21:56 Admit Provider: Tamara Villalobos
[2020-01-09 19:41] LABS: RBC Urine None Seen (0-5/HPF)
[2020-01-09 19:41] LABS: Alanine Aminotransferase 53 IU/L (<35); Albumin 4.8 g/dL (3.5-5.0); Albumin Globulin Ratio 1.7 (1.0-2.8); Alkaline Phosphatase 105 U/L (38-126); Aspartate Aminotransferase 111 IU/L (14-36); BUN Creatinine Ratio 27.6 (6-22); Blood Urea Nitrogen 8 mg/dL (7-17); Calcium 9.4 mg/dL (8.4-10.2); Carbon Dioxide 25 mmol/L (22-32); Chloride 85 mmol/L (98-107); Estimated Glomerular Filt Rate > 60.0 mL/min (>60); Globulin 2.8 g/dL (1.7-4.1); Glucose 106 mg/dL (70-100); HEMOLYSIS < 15 (0-50); Lipase 130 U/L (23-300); Potassium 3.4 mmol/L (3.4-5.1); Sodium 125 mmol/L (137-145); Total Protein 7.6 g/dL (6.3-8.2)
[2020-01-09 19:42] LABS: Acetaminophen < 10 ug/mL (10-30); Add Manual Diff / Slide Review NO; Basophils Absolute Auto 100 /uL (0-100); Basophils Percent Auto 1.1 % (0-2); Eosinophils Absolute Auto 0 /uL (0-450); Eosinophils Percent Auto 0.1 % (2-4); Ethanol (ETOH) < 10 mg/dL; Hematocrit 29.9 % (36-46); Hemoglobin 10.8 g/dL (12.0-16.0); Lymphocytes Absolute Auto 800 /uL (1100-4500); Mean Corpuscular HGB Conc 36.1 % (30-36); Mean Corpuscular Hemoglobin 37.9 PG (26-34); Mean Corpuscular Volume 104.8 fL (80-100); Monocytes Absolute Auto 600 /uL (0-900); Monocytes Percent Auto 7.1 % (3-14); Neutrophils Absolute Auto 7000 /uL (1500-7000); Neutrophils Percent Auto 82.7 % (50-75); Platelet Count 311 X10^3/uL (150-400); Red Blood Cell Count 2.86 X10^6/uL (4.0-5.2); Red Cell Distribution Width 11.7 % (11.6-14.8); Salicylate < 1.0 mg/dL (<20); White Blood Cell Count 8.4 X10^3/uL (4.5-11.0)
[2020-01-09 19:44] LABS: UR Morphine/Opiate cutoff 300 Negative (Negative); Ur Creatinine Normal (Normal); Ur Specific Gravity Normal (Normal); Urine Amphetamines Negative (Negative); Urine Barbiturates Positive (Negative); Urine Benzodiazepines Negative (Negative); Urine Cocaine Negative (Negative); Urine MDMA Negative (Negative); Urine Methadone Negative (Negative); Urine Methamphetamines Negative (Negative); Urine Oxycodone Negative (Negative); Urine Phencyclidine Negative (Negative); Urine Tetrahydrocannabinol Negative (Negative); Urine Tricyclic Antidepressant Negative (Negative); Urine pH Normal (Normal)
[2020-01-09 19:48] LABS: Bacteria Urine Many (>30); Culture Indicated Urine Specimen Cultured; Squamous Epithelial Cell Urine 0-1 /HPF (0-5/HPF); WBC Urine 1-5/HPF (0-5/HPF)
[2020-01-09] MEDS: PANTOPRAZOLE 40 MG VIAL IV (19:48)
[2020-01-09] MEDS: SODIUM CHLORIDE 0.9% 1,000 ML 1000 ML IV (19:48)
[2020-01-09] MEDS: PHENobarbital 65 MG/ML VIAL 130 MG IV (19:49)
[2020-01-09] MEDS: ONDANSETRON 4 MG/2 ML INJ IV (19:49)
--- NOTE | 2020-01-09 20:21 | DI.CT.S_ITS ---
PROCEDURE: CT ABDOMEN PELVIS W CON INDICATIONS: Severe abdominal pain, nausea, vomiting TECHNIQUE: After the administration of intravenous contrast, 5 mm thick sections acquired from the diaphragm to the symphysis. 5 mm coronal and sagittal reformats were acquired. For radiation dose reduction, the following was used: automated exposure control, adjustment of mA and/or kV according to patient size. COMPARISON: None. FINDINGS: Image quality: Excellent. ABDOMEN: Lung bases: Lung bases are clear. Heart size is normal. Solid organs: Liver is borderline enlarged with hypoattenuation indicating steatosis. Gallbladder unremarkable. Both adrenal glands and kidneys are within normal limits. Spleen and pancreas unremarkable. . Peritoneum and bowel: Normal nondilated appendix. There is no abnormally dilated loop of bowel to indicate obstruction. There is a large burden of stool throughout the colon suggestive of constipation. The small bowel is relatively collapsed. There is no obvious bowel wall thickening. There is subjective mucosal hyperenhancement throughout the small bowel with a shaggy appearance of the mucosa. Nodes and vessels: No threshold enlarged mesenteric or retroperitoneal lymph node. Miscellaneous: No ventral hernias. PELVIS: Genitourinary: There is free pelvic fluid. There is a mixed density predominantly cystic lesion in the right adnexa with peripheral enhancement which most likely represents a hemorrhagic cyst although this is not entirely definitive. Low-density lesion in the left adnexa is also likely a cyst and physiologic in nature. Small volume fluid in the endometrial cavity. Uterus is otherwise normal in appearance. Urinary bladder within normal limits. Miscellaneous: No threshold enlarged pelvic or inguinal lymph node. No inguinal or femoral hernia. Bones: No suspicious bony lesions. No vertebral body compression fractures. IMPRESSION: 1. Shaggy and hyperenhancing small bowel mucosa. Findings would be consistent with a diagnosis of enteritis in the appropriate clinical setting. Follow-up to clinical resolution is recommended, as there are additional differential considerations such as inflammatory bowel disease, atypical non self-limiting infectious processes, and other less likely neoplastic considerations. 2. Low-density adnexal lesions likely representing hemorrhagic cysts, within physiologic normal limits and requiring no additional follow-up provided that symptoms resolve. 3. Borderline hepatomegaly with at least mild hepatic steatosis. Dictated by: Eddie Grider M.D. on 01/09/2020 at 21:08 Approved by: Eddie Grider M.D. on 01/09/2020 at 21:13
--- NOTE | 2020-01-09 20:21 | DI.CT.S_ITS ---
PROCEDURE: CT ANGIO CHEST PE PROTOCOL INDICATIONS: Chest pain, SOB, tachycardia TECHNIQUE: After the administration of intravenous contrast, 2 mm thick sections acquired from the pulmonary apices to the posterior costophrenic angles. 3-dimensional maximum intensity projection (MIP) coronal and sagittal reformats were then acquired through the thorax. For radiation dose reduction, the following was used: automated exposure control, adjustment of mA and/or kV according to patient size. COMPARISON: None. FINDINGS: Image quality: Excellent. Pulmonary arteries: Pulmonary arteries are normal in size, and demonstrate no intraluminal filling defects to suggest central pulmonary embolism. Lungs and pleura: Lungs are clear. No pleural effusions or pneumothorax. Central and peripheral airways are patent. Mediastinum: Heart size is normal, without pericardial effusion. No mediastinal or hilar adenopathy. Thoracic aorta is normal in caliber and enhancement. Esophagus is normal in caliber, without hiatal hernia. Bones and chest wall: No suspicious bony lesions. Ribs and thoracic spine appear intact throughout. Thyroid gland uniform. No axillary or supraclavicular adenopathy. Abdomen: Visualized upper abdominal solid organs appear normal in the limited early arterial phase of enhancement. IMPRESSION: No evidence of pulmonary embolism or other acute finding in the chest. Dictated by: Eddie Grider M.D. on 01/09/2020 at 21:05 Approved by: Eddie Grider M.D. on 01/09/2020 at 21:08
[2020-01-09 22:22] LABS: COVID19 -Nasal RAPID Negative (Negative)
[2020-01-10] VITALS (12 sets, daily range): BP systolic 112–139; BP diastolic 70–83; PULSE 100–122; RESP 16–18; TEMP 36.2–36.6; O2SAT 96–100
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
[2020-01-10] MEDS: MAGNESIUM SULFATE 2 GM, FOLIC ACID 1 MG, THIAMINE 100 MG, MULTIVITAMIN 10 ML in SODIUM ... IV (00:38)
[2020-01-10] MEDS: KETOROLAC 15 MG/ML VIAL IV ×3 (00:38→17:06)
[2020-01-10] MEDS: ONDANSETRON 4 MG/2 ML INJ IV ×3 (00:39→17:06)
[2020-01-10] MEDS: LORazepam 1 MG TABLET 2 MG PO ×2 (00:59→08:47)
[2020-01-10 05:39] LABS: Add Manual Diff / Slide Review NO; Basophils Absolute Auto 100 /uL (0-100); Eosinophils Absolute Auto 0 /uL (0-450); Eosinophils Percent Auto 0.5 % (2-4); Hemoglobin 9.7 g/dL (12.0-16.0); Lymphocytes Absolute Auto 1400 /uL (1100-4500); Lymphocytes Percent Auto 28.5 % (25-40); Mean Corpuscular HGB Conc 35.8 % (30-36); Mean Corpuscular Hemoglobin 37.7 PG (26-34); Mean Corpuscular Volume 105.4 fL (80-100); Monocytes Absolute Auto 500 /uL (0-900); Monocytes Percent Auto 10.9 % (3-14); Neutrophils Absolute Auto 2800 /uL (1500-7000); Neutrophils Percent Auto 59.1 % (50-75); Platelet Count 278 X10^3/uL (150-400); Red Blood Cell Count 2.56 X10^6/uL (4.0-5.2); Red Cell Distribution Width 11.8 % (11.6-14.8); White Blood Cell Count 4.8 X10^3/uL (4.5-11.0)
[2020-01-10 05:46] LABS: Alanine Aminotransferase 42 IU/L (<35); Albumin 4.3 g/dL (3.5-5.0); Albumin Globulin Ratio 1.7 (1.0-2.8); Alkaline Phosphatase 90 U/L (38-126); Aspartate Aminotransferase 79 IU/L (14-36); BUN Creatinine Ratio 16.7 (6-22); Bilirubin Total 1.2 mg/dL (0.2-1.3); Blood Urea Nitrogen 5 mg/dL (7-17); Calcium 8.9 mg/dL (8.4-10.2); Carbon Dioxide 22 mmol/L (22-32); Chloride 95 mmol/L (98-107); Estimated Glomerular Filt Rate > 60.0 mL/min (>60); Globulin 2.5 g/dL (1.7-4.1); Glucose 90 mg/dL (70-100); HEMOLYSIS < 15 (0-50); Magnesium 2.8 mg/dL (1.6-2.3); Potassium 3.7 mmol/L (3.4-5.1); Sodium 126 mmol/L (137-145); Total Protein 6.8 g/dL (6.3-8.2)
[2020-01-10] MEDS: SODIUM CHLORIDE 0.9% 1,000 ML 150 ML IV ×2 (08:39→17:06)
[2020-01-10] MEDS: FOLIC ACID 1 MG TABLET PO (08:44)
[2020-01-10] MEDS: DOCUSATE 100 MG CAPSULE PO ×2 (08:44→20:34)
[2020-01-10] MEDS: MULTIVITAMIN 1 TABLET 1 TAB PO (08:44)
[2020-01-10] MEDS: ENOXAPARIN 40 MG/0.4 ML SYRINGE SUBCUT (08:44)
[2020-01-10] MEDS: NICOTINE 14 PATCH 14 MG TOP (08:45)
--- NOTE | 2020-01-10 10:32 | PC.NURSE ---
Day shift note: HR increase to 140-144 with activity, decreased to 100-110 at rest, no dizziness. Dr. Foster made aware, IVF infusing. Notified Cristian Rebollar regarding Urine Cx result.
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
--- NOTE | 2020-01-10 16:04 | PM.PN.1 ---
Subjective Subjective Date Patient Seen: 01/10/20 Time Patient Seen: 16:04 Interval history: Leti Aguirre is a 34-year-old female with multiple medical issues currently being worked up for multiple sclerosis, multiple psychiatric diagnosis including PTSD and depression, recent heavy alcohol use presented to the emergency department with severe nausea and vomiting and confusion of uncertain etiology. She was admitted for a toxic-metabolic encephalopathy, hyponatremia, and persistent nausea/vomiting with inability to tolerate PO intake. She slept for much of today. She is feeling somewhat stronger. She denies any nausea or vomiting today and feels hungry. She states she has been having difficulty with her medications at home, and has been nauseous and vomiting which she believes is related to the medications and possible interactions between them. She has been varying the times she takes medications in attempts to control her symptoms. She reports increased environmental stressors and PTSD symptoms, and has been drinking to try and cope as well. She drinks between 3-5 beers daily, and sometimes requires a beer in the morning when she doesn't feel right. which has been most days. Her story is disjointed, and she has a hard time verbalizing her symptoms and instead speak with vague references, making her actual symptoms difficult to interpret. She endorses chronic joint pains and headaches / migraines, opiate use to try and control what she causes pain from MS. She denies any dysuria or urinary frequency but did have this a few days ago. Exam Vital Signs (past 8 hours): - 01/10/20 08:18 01/10/20 09:41 01/10/20 12:00 Temperature 97.1 F L Pulse Rate 100 H 100 H Respiratory Rate 16 16 Blood Pressure 122/70 112/74 Pulse Oximetry 96 100 Oxygen Delivery Method Room Air Oxygen Flow Rate 0 Narrative Exam Narrative: Gen: Alert, oriented, disheveled and cachectic appearing 34 y.o. female, shaking HEENT: normocephalic, atraumatic, conjunctiva clear, sclera non-icteric, oral mucosa pink and moist Neck: supple, full ROM, no JVD, trachea is midline Resp: Lungs CTA, non-labored breathing CV: RRR, no murmur or rubs Abd: soft, non-tender, normoactive BTs Skin: no lesions or rashes, dry and intact Neuro: Alert and oriented X 4 w/no focal deficits. Speech clear. Extremities: moves all 4 extremities, is ambulatory, negative Kamron?s sign. Patient intermittently wearing brace on her arm. Psyche: normal mood and affect. Objective Labs Result Diagrams: 01/10/20 05:16 01/10/20 05:16 Labs: Laboratory Results - last 24 hr 01/09/20 01/09/20 01/09/20 19:21 19:21 19:21 WBC 8.4 RBC 2.86 L Hgb 10.8 L Hct 29.9 L MCV 104.8 H MCH 37.9 H MCHC 36.1 H RDW 11.7 Plt Count 311 Neut % (Auto) 82.7 H Lymph % (Auto) 9.0 L Grainger % (Auto) 7.1 Eos % (Auto) 0.1 L Baso % (Auto) 1.1 Neut # (Auto) 7000 Lymph # (Auto) 800 L Grainger # (Auto) 600 Eos # (Auto) 0 Baso # (Auto) 100 Sodium 125 L Potassium 3.4 Chloride 85 L Carbon Dioxide 25 BUN 8 Creatinine 0.29 L Estimated GFR > 60.0 BUN/Creatinine Ratio 27.6 H Glucose 106 H Calcium 9.4 Magnesium Total Bilirubin 1.0 AST 111 H ALT 53 H Alkaline Phosphatase 105 Total Protein 7.6 Albumin 4.8 Globulin 2.8 Albumin/Globulin Ratio 1.7 Lipase 130 TSH Thyroxine (T4) Urine RBC Urine WBC Ur Squamous Epith Cells Urine Bacteria Ur Culture Indicated? Salicylates < 1.0 U Opiates 300ng/mL cut Ur Oxycodone Screen Urine Methadone Screen Acetaminophen < 10 L Ur Barbiturates Screen U Tricyclic Antidepress Ur Phencyclidine Scrn Ur Amphetamines Screen U Methamphetamines Scrn Ur MDMA Scrn (Ecstasy) U Benzodiazepines Scrn Urine Cocaine Screen U Marijuana (THC) Screen Ethyl Alcohol < 10 COVID-19 PCR 01/09/20 01/09/20 01/09/20 19:28 19:28 21:20 WBC RBC Hgb Hct MCV MCH MCHC RDW Plt Count Neut % (Auto) Lymph % (Auto) Grainger % (Auto) Eos % (Auto) Baso % (Auto) Neut # (Auto) Lymph # (Auto) Grainger # (Auto) Eos # (Auto) Baso # (Auto) Sodium Potassium Chloride Carbon Dioxide BUN Creatinine Estimated GFR BUN/Creatinine Ratio Glucose Calcium Magnesium Total Bilirubin AST ALT Alkaline Phosphatase Total Protein Albumin Globulin Albumin/Globulin Ratio Lipase TSH Thyroxine (T4) Urine RBC None seen Urine WBC 1-5/hpf Ur Squamous Epith Cells 0-1 /hpf Urine Bacteria Many (>30) H Ur Culture Indicated? Specimen cultured Salicylates U Opiates 300ng/mL cut Negative Ur Oxycodone Screen Negative Urine Methadone Screen Negative Acetaminophen Ur Barbiturates Screen Positive H U Tricyclic Antidepress Negative Ur Phencyclidine Scrn Negative Ur Amphetamines Screen Negative U Methamphetamines Scrn Negative Ur MDMA Scrn (Ecstasy) Negative U Benzodiazepines Scrn Negative Urine Cocaine Screen Negative U Marijuana (THC) Screen Negative Ethyl Alcohol COVID-19 PCR Negative 01/10/20 01/10/20 01/10/20 05:16 05:16 05:16 WBC 4.8 RBC 2.56 L Hgb 9.7 L Hct 27.0 L MCV 105.4 H MCH 37.7 H MCHC 35.8 RDW 11.8 Plt Count 278 Neut % (Auto) 59.1 D Lymph % (Auto) 28.5 Grainger % (Auto) 10.9 Eos % (Auto) 0.5 L Baso % (Auto) 1.0 Neut # (Auto) 2800 Lymph # (Auto) 1400 Grainger # (Auto) 500 Eos # (Auto) 0 Baso # (Auto) 100 Sodium 126 L Potassium 3.7 Chloride 95 L Carbon Dioxide 22 BUN 5 L Creatinine 0.30 L Estimated GFR > 60.0 BUN/Creatinine Ratio 16.7 Glucose 90 Calcium 8.9 Magnesium 2.8 H Total Bilirubin 1.2 AST 79 H ALT 42 H Alkaline Phosphatase 90 Total Protein 6.8 Albumin 4.3 Globulin 2.5 Albumin/Globulin Ratio 1.7 Lipase TSH 4.80 H Thyroxine (T4) Urine RBC Urine WBC Ur Squamous Epith Cells Urine Bacteria Ur Culture Indicated? Salicylates U Opiates 300ng/mL cut Ur Oxycodone Screen Urine Methadone Screen Acetaminophen Ur Barbiturates Screen U Tricyclic Antidepress Ur Phencyclidine Scrn Ur Amphetamines Screen U Methamphetamines Scrn Ur MDMA Scrn (Ecstasy) U Benzodiazepines Scrn Urine Cocaine Screen U Marijuana (THC) Screen Ethyl Alcohol COVID-19 PCR 01/10/20 05:16 WBC RBC Hgb Hct MCV MCH MCHC RDW Plt Count Neut % (Auto) Lymph % (Auto) Grainger % (Auto) Eos % (Auto) Baso % (Auto) Neut # (Auto) Lymph # (Auto) Grainger # (Auto) Eos # (Auto) Baso # (Auto) Sodium Potassium Chloride Carbon Dioxide BUN Creatinine Estimated GFR BUN/Creatinine Ratio Glucose Calcium Magnesium Total Bilirubin AST ALT Alkaline Phosphatase Total Protein Albumin Globulin Albumin/Globulin Ratio Lipase TSH Thyroxine (T4) 4.80 L Urine RBC Urine WBC Ur Squamous Epith Cells Urine Bacteria Ur Culture Indicated? Salicylates U Opiates 300ng/mL cut Ur Oxycodone Screen Urine Methadone Screen Acetaminophen Ur Barbiturates Screen U Tricyclic Antidepress Ur Phencyclidine Scrn Ur Amphetamines Screen U Methamphetamines Scrn Ur MDMA Scrn (Ecstasy) U Benzodiazepines Scrn Urine Cocaine Screen U Marijuana (THC) Screen Ethyl Alcohol COVID-19 PCR Assessment & Plan Assessment & Plan narrative: Leti Aguirre is a 34-year-old female with multiple medical issues currently being worked up for multiple sclerosis, multiple psychiatric diagnosis including PTSD and depression, recent heavy alcohol use presented to the emergency department with severe nausea and vomiting and confusion of uncertain etiology. She was admitted for a toxic-metabolic encephalopathy, hyponatremia, and persistent nausea/vomiting with inability to tolerate PO intake. 1. Acute toxic metabolic encephalopathy, appears to be improving -differentials include hyponatremia, possible alcohol withdrawal, polypharmacy (from new pain medications, multiple antidepressants, etc) vs withdrawal from psychiatric medications, toxic ingestion (reported mushrooms), or acute cystitis. Unknown what her baseline mental status is like but she is alert and oriented. Suspect etiology is multifactorial from the prior noted possibilities. -continue CIWA protocol with Ativan and Reglan as needed -seizure precautions -multivitamin bag x1 followed by oral folate, multivitamins, and thiamine -Zofran and Reglan for nausea and vomiting -ceftriaxone started as noted below. 2. alcohol withdrawal , present on admission -STUDENT SUPPORT COUNSELOR consultation. Patient is interested in inpatient or outpatient support for alcohol cessation. -CIWA protocol as noted above -patient does not appear to be withdrawaling as of this time, however she was given 130 mg of phenobarbitol in the ER which likely treated mild withdrawal. It is hard to discern symptoms with a possible underlying neurological disorder. no librium needed at this time and will continue CIWA protocol. 3. Hyponatremia, present on admission -sodium 125 on admission, slowly improving. Likely due to hypovolemia given history of nausea and vomiting. Continue to follow BMPs. Continue NS at 100 cc per hour. - monitor closely for seizures and or neurological symptoms. Avoid over correction. -cardiac telemetry 4. Fracture of the right wrist -patient has brace that she has applied. Follow up recommended with outpatient orthopedics, whom she has not seen yet. -Continue PT -oxycodone/acetaminophen for pain, Ketoralac IV for pain and tylenol prn 5. nausea/vomiting - suspect polypharmacy (opiates from fracture, etoh) leading to nausea / vomiting and then worsening hyponatremia. - appears to have improved today, tolerating a large dinner this evening. 6. Acute cystitis, present on admission. - will start of ceftriaxone, follow up final urine culture which is currently growing gram negative bacilli. 7. Anemia, macrocytic, present on admission - suspect due to nutritional deficiencies and EtOH use. - will check b12/folate - continue to follow 8. alcoholic hepatitis. - LFTs improving, in the mid 100s on admission. Continue to follow. 9. PTSD / depression - continue buproprion, duloxetine, and nortriptyline. VTE prophylaxis: Enoxaparin 40 mg subQ daily Code Status: Full Code as discussed with patient COVID-19: Negative.
[2020-01-10] MEDS: LORazepam 1 MG TABLET PO (17:06)
[2020-01-10 17:07] LABS: BUN Creatinine Ratio 12.9 (6-22); Blood Urea Nitrogen 4 mg/dL (7-17); Calcium 8.8 mg/dL (8.4-10.2); Carbon Dioxide 22 mmol/L (22-32); Chloride 97 mmol/L (98-107); Estimated Glomerular Filt Rate > 60.0 mL/min (>60); Glucose 111 mg/dL (70-100); HEMOLYSIS < 15 (0-50); Potassium 3.5 mmol/L (3.4-5.1); Sodium 127 mmol/L (137-145)
[2020-01-10] MEDS: CEFTRIAXONE 1 GM/50 ML FROZ.PIGGY IV (17:12)
--- NOTE | 2020-01-10 17:37 | DIET.PN ---
Dietary Progress Note pt sleeping when consult attempted, will try again when RD in office Mon am
[2020-01-10] MEDS: NORTRIPTYLINE HCL 25 MG CAPSULE 50 MG PO (20:33)
[2020-01-10] MEDS: buPROPion SR 150 MG TAB PO (20:34)
[2020-01-10] MEDS: OXYCODONE/ACETAMINOPHEN 5/325 TABLET 1 TAB PO (20:42)
[2020-01-10] MEDS: THIAMINE 100 MG TABLET PO (23:44)
[2020-01-11] MEDS: KETOROLAC 15 MG/ML VIAL IV ×2 (01:06→10:37)
[2020-01-11] MEDS: SODIUM CHLORIDE 0.9% 1,000 ML 150 ML IV (01:17)
[2020-01-11] MEDS: LORazepam 1 MG TABLET PO ×2 (01:17→06:37)
[2020-01-11 01:51] VITALS: BP 123/79; PULSE 113; RESP 16
[2020-01-11 03:00] VITALS: BP 136/86; PULSE 105; RESP 18; TEMP 36.7; O2SAT 99
[2020-01-11 05:33] LABS: Add Manual Diff / Slide Review NO; Basophils Absolute Auto 100 /uL (0-100); Basophils Percent Auto 1.9 % (0-2); Eosinophils Absolute Auto 100 /uL (0-450); Eosinophils Percent Auto 4.2 % (2-4); Hematocrit 23.1 % (36-46); Hemoglobin 8.1 g/dL (12.0-16.0); Lymphocytes Absolute Auto 900 /uL (1100-4500); Lymphocytes Percent Auto 29.8 % (25-40); Mean Corpuscular HGB Conc 35.1 % (30-36); Mean Corpuscular Hemoglobin 37.2 PG (26-34); Mean Corpuscular Volume 106.2 fL (80-100); Monocytes Absolute Auto 300 /uL (0-900); Monocytes Percent Auto 10.4 % (3-14); Neutrophils Absolute Auto 1600 /uL (1500-7000); Neutrophils Percent Auto 53.7 % (50-75); Platelet Count 237 X10^3/uL (150-400); Red Blood Cell Count 2.17 X10^6/uL (4.0-5.2); Red Cell Distribution Width 11.6 % (11.6-14.8)
[2020-01-11 05:40] LABS: Calcium 8.6 mg/dL (8.4-10.2); Carbon Dioxide 21 mmol/L (22-32); Chloride 98 mmol/L (98-107); Estimated Glomerular Filt Rate > 60.0 mL/min (>60); Glucose 128 mg/dL (70-100); HEMOLYSIS < 15 (0-50); Potassium 3.1 mmol/L (3.4-5.1); Sodium 128 mmol/L (137-145)
[2020-01-11 05:41] LABS: BUN Creatinine Ratio 7.4 (6-22); Blood Urea Nitrogen < 2 mg/dL (7-17)
[2020-01-11 05:42] LABS: Alanine Aminotransferase 30 IU/L (<35); Albumin 3.6 g/dL (3.5-5.0); Albumin Globulin Ratio 1.5 (1.0-2.8); Alkaline Phosphatase 72 U/L (38-126); Aspartate Aminotransferase 64 IU/L (14-36); Bilirubin Total 0.6 mg/dL (0.2-1.3); Bilirubin Unconjugated 0.6 mg/dL (0.0-1.1); Globulin 2.4 g/dL (1.7-4.1); HEMOLYSIS < 15 (0-50); Magnesium 1.8 mg/dL (1.6-2.3)
[2020-01-11 06:55] LABS: Folate 13.9 ng/mL (2.76-20.0); Vitamin B12 319 pg/mL (239-931)
[2020-01-11 07:00] VITALS: BP 129/79; PULSE 100; RESP 16; TEMP 36.8; O2SAT 100
[2020-01-11 07:31] VITALS: BP 136/86; PULSE 105; RESP 18
[2020-01-11 08:04] VITALS: O2SAT 100
[2020-01-11] MEDS: DULOXETINE 20 MG CAPSULE PO (08:36)
[2020-01-11] MEDS: NICOTINE 14 PATCH 14 MG TOP (08:36)
[2020-01-11] MEDS: buPROPion SR 150 MG TAB PO (08:36)
[2020-01-11] MEDS: MULTIVITAMIN 1 TABLET 1 TAB PO (08:36)
[2020-01-11] MEDS: FOLIC ACID 1 MG TABLET PO (08:36)
[2020-01-11] MEDS: ENOXAPARIN 40 MG/0.4 ML SYRINGE SUBCUT (08:36)
[2020-01-11] MEDS: DOCUSATE 100 MG CAPSULE PO (08:36)
[2020-01-11] MEDS: VITAMIN B COMPLEX 1 CAPSULE 1 CAP PO (08:36)
[2020-01-11] MEDS: THIAMINE 100 MG TABLET PO (08:36)
--- NOTE | 2020-01-11 09:14 | PC.NURSE ---
Patient is anxious about her continuing health care and the amount of medications she takes. Spoke with patient at length regarding follow up ortho visit (wrist related0 and her desire to do a detox center. recreation worker speaking with patient at this time. Patient is steady on her feet, denies N/V, is taking in fluids PO. Saline locked at this time. Refused SCD's.
--- NOTE | 2020-01-11 10:02 | PT.IPTN ---
Physical Therapy Treatment Note M2 PT-IP Current Condition Start: 01/10/20 08:44 Freq: NEEDED Status: Active Protocol: Document 01/10/20 09:34 HH (Rec: 01/10/20 12:54 HH [id number]) Physical Therapy Current Condition Current Condition Evaluation Date 01/10/20 Treatment Diagnosis alcohol detox versus toxic mushroom poisoning, poor balance, weakness Onset Date 01/09/20 Weight Bearing Status Weight Bearing Status Full Weight Bearing M3 PT-IP Subjective Start: 01/10/20 08:44 Freq: NEEDED Status: Active Protocol: Document 01/11/20 09:52 KS (Rec: 01/11/20 11:26 KS [id number]) Subjective Physical Therapy Visit Type Type Treatment Note Visit Start Time 09:52 Visit Stop Time 10:02 Total Visit Minutes 10 Notes Pt agreeable to work w/ therapy. Number of LOGGING RAFTER LABORER Visits 1 Therapy Pain Assessment Pain Present Pain Present Denied Pain M4 PT-IP Mobility and Gait Start: 01/10/20 08:44 Freq: NEEDED Status: Active Protocol: Document 01/11/20 09:52 KS (Rec: 01/11/20 11:26 KS [id number]) PT-Bed Mobility Assessment Supine to Sit Supine to Sit Independent Scooting Scooting to Edge of Bed Independent PT-Transfer Assessment Sit to and From Stand Sit to and from Stand Independent,Use of Upper Extremities Equipment Transfer Assistive Device Gait Belt Orthotic/Prosthetic Devices or Brace: No Transfers Transfer Destination Bed Transfer Technique pt ambulated w/o AD Transfer Ability Level of Assist Independent,Use of Upper Extremities Comments Mobility Comments Pt sitting upright in bed upon arrival from therapy. Pt stood independently and walked to sink and remained standing for gait belt application. Pt then ambulated to w/c in hallway and sat in w/c for transport to stairs to conserve energy for stair training. Pt presents w/ shakiness in BUE throughout treatment. Pt performed 1 set of 3 steps w/o use of handrails and SBA. Pt ascended /descended steps quickly and impulsively but was able to remain balanced. Pt transported in w/c back to room and ambulated independently from door to sit back in bed. Pt refused LE strengthening exericses and left in bed w/ all needs in reach. Gait Assessment Gait Gait Assistance Required: Independent Distance (Feet) 30 Able to Maintain Weight Bearing Status No During Gait Assistive Devices Assistive Device Gait Belt Orthotic/Prosthetic Devices or Brace: No Gait Deviations General Gait Pattern Decreased Stride Length, Decreased Feet Clearance Factors Limiting Gait Function Factors Limiting Gait Function Decreased Activity Tolerance, Decreased Strength,Difficulty Following Directions, Incoordination,Poor Balance, Poor Safety Awareness, Respiratory Distress Comments Gait Comments Pt ambulated ~30 total ft w/ gait belt and no AD independently. Pt has decreased foot clearance and stride length. Stair Climbing Assessment Evaluation Level of Assist On Stairs Standby Assistance,1 Person Assistance Devices Stair Climbing Assistive Devices None Technique/Endurance Stair Climbing Direction Ascend and Descend Stair Climbing Technique Step Over Step Number of Steps Climbed 3 Stair Climbing Set # Repetitions (reps) 1 Comments Stair Climbing Comments Pt ascended/descended 3 steps w/ step over step pattern and SBA w/o use of hand rails or AD. Pt is slightly impulsive while completing stairs, but remained balanced. Encouraged pt to ascend/descend steps more slowly in the future. PT-Balance Assessment Sitting Balance and Reactions Static Sitting Balance Ability Normal Dynamic Sitting Balance Ability Normal Standing Balance and Reactions Static Standing Balance Ability Good Dynamic Standing Balance Ability Good Device Used none M5 PT-IP Objective Assessments Start: 01/10/20 08:44 Freq: NEEDED Status: Active Protocol: Document 01/10/20 09:34 HH (Rec: 01/10/20 12:54 [email or web address]) Orientation Orientation/Cognition Level of Alertness Alert Orientation Name,Age,Birthday,Month,Date, Year,Day of Week,Place, Situation Language Function Ability No Deficits Noted Safety Awareness Decreased Safety Awareness Memory Description Short Term Impaired Comments Pt appeared shaky with resting tremors , along with flat affect. AxOx4. This PT was able to obtain social hx that matched with EMR. Gross Range of Motion Upper Extremity ROM Assessment Right Impaired Impairments pt is wearing R wrist brace for Colles fx since 12/18/19 Lower Extremity ROM Assessment Within Functional Limits Strength Upper Extremity Strength Assessment Right Impaired Wrist with wrist brace Lower Extremity Strength Assessment Within Functional Limits Coordination Assessment Gross Coordination Gross Coordination WNL Sensation Assessment Sensation Gross Sensation WNL Muscle Tone Muscle Tone WNL Yes M6 PT-IP Treatment Start: 01/10/20 08:44 Freq: NEEDED Status: Active Protocol: Document 01/11/20 09:52 KS (Rec: 01/11/20 11:26 KS [id number]) Physical Therapy Treatment Education Education Provided Safety M7 PT-IP Assessment and Plan Start: 01/10/20 08:44 Freq: NEEDED Status: Active Protocol: Document 01/11/20 09:52 KS (Rec: 01/11/20 11:26 KS [id number]) PT Summary Assessment and Plan Potential Rehabilitation Potential Good Status of Condition at Evaluation Evolving Summary Impairments Strength,Balance,Coordination, Cognition,Bed Mobility, Transfers,Gait,Activity Tolerance Assessment Summary Pt independent for transfers and ambulation, SBA during stairs d/t impulsiveness. Pt ambulated ~30 ft total w/o AD and ascended/descended SBA. Cues for slower pace when completing steps. Pt refused LE strengthening exercises today. Goals Bed Mobility Goal Independent Transfer Goal Independent Gait Goal Independent Gait Distance 500 Other Goals up down 2 SAUNDRA independently Days to Meet Goals 5 Frequency of Treatment Frequency Of Treatment Once a Day Treatment Plan Physical Therapy Treatment Plan Bed Mobility Training,Transfer Training,Gait Training, Therapeutic Exercise,Balance Retraining,Discharge Planning, Neuromuscular Re-ed, Coordination Retraining Recommendations To Nursing Amount of Assist Needed Independent,Standby Assistance Discharge Recommendations PT Discharge Recommendations Home with Assistance Other Discharge Recommendations d/c home with family assistance as needed, along with inpt rehab for subtance use and psychiatric treatment in [facility]. Will cont assess pt progress. Transportation Needs at Discharge Private Vehicle
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
[2020-01-11 11:00] VITALS: BP 140/88; PULSE 113; RESP 18; TEMP 36.7; O2SAT 100
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
--- NOTE | 2020-01-11 11:44 | CM.SWNOTE ---
Addendum entered by KAYKAY Robert 01/11/20 14:54: Jameel Campbell, [facility] and [facility] unable to accept patient because [facility] will not pay for detox/YVONNE services at their facilities and patient does not meet acute psychiatric/MH criteria for insurance to pay for MH services. Updated patient no beds available today and provided [facility] MH/YVONNE outpt resources/numbers for both [facility] and [facility] in [place]. Mom has now arrived to transport patient home. Patient is secretive in room as mom steps in, hides resources this WIRELESS STORE MANAGER has provided, ANJANA Cervantes notified. JW Original Note: Placement Efforts Placed call to following facilities: [facility]- cannot take patient w/o prior auth from [facility] Renea Reeves- Discussed case w/SWer who suggested this WIRELESS STORE MANAGER try dual dx units at [facility] or [facility] first to seek bed availability then CB in case she can screen patient for psychiatric care, no dual dx unit Renea St[facility]- Full [facility]- Full [place] [place]- faxed clinical [facility]- Faxed clinical [facility]- Faxed clinical [facility]
== END 2020-01-11 15:22 | disposition home or self-care (01) | DRG 52 ==
LOC: ED 21:54 → AC 01-10 08:00
PROVIDERS: Internal Medicine; Admitting Provider Nurse Practitioner Family; Emergency Provider Emergency Medicine; Family Provider Nurse Practitioner Family; PCP Nurse Practitioner Family; Referring Provider Emergency Medicine; Visit Provider Nurse Practitioner Family
DX: G92 Toxic encephalopathy (principal); R11.2 Nausea with vomiting, unspecified; R19.7 Diarrhea, unspecified; F10.239 Alcohol dependence with withdrawal, unspecified; E87.1 Hypo-osmolality and hyponatremia; K70.10 Alcoholic hepatitis without ascites; N30.00 Acute cystitis without hematuria; B96.20 Unspecified Escherichia coli [E. coli] as the cause of diseases classified elsewhere; S52.501D Unspecified fracture of the lower end of right radius, subsequent encounter for closed fracture with routine healing; V49.9XXD Car occupant (driver) (passenger) injured in unspecified traffic accident, subsequent encounter; D53.9 Nutritional anemia, unspecified; F43.10 Post-traumatic stress disorder, unspecified; F32.9 Major depressive disorder, single episode, unspecified; Z11.59 Encounter for screening for other viral diseases
CPT/HCPCS: 36415; 71275; 74177; 80048; 80053; 80076; 80305; 80320; 80329; 81003; 81015; 81025; 82607; 82746; 83690; 83735; 84436; 84443; 85025; 87077; 87086; 87186; 87635; 93005; 93010; 97116; 97163; 99284; G0378; A9270; C9113; G0480; J1650; J1885; J2405; J2560; J3475; Q9967